=== PATIENT | male | born 1930 ===

== ENCOUNTER 2017-01-22 07:50 | Inpatient (IN) | payer MEDICARE, OTHER ==
[~2017-01-22] VITALS: Ht 185.4 cm; Wt 86.2 kg
[~2017-01-22 07:50] MED LIST: AMITIZA24 MCG PO; ARICEPT10 MG PO; CYMBALTA30 MG PO; IPRATROPIUM BRO30 ML NASBOTH; LIPITOR20 MG PO; PLAVIX75 MG PO; PRAVACHOL20 MG PO; PRINIVIL20 MG PO; RESTORIL15 MG PO; UROXATRAL10 MG PO
[2017-01-22] MEDS ORDERED: LASIX40 MG PO (08:30)
[2017-01-22] MEDS ORDERED: MILK OF MAGNESI30 ML PO (08:39)
[2017-01-22] MEDS ORDERED: RESTORIL15 MG PO ×2 (08:41→11:38)
[2017-01-22] MEDS ORDERED: TRIAMCINOLONE A15 GM TOP (08:43)
[2017-01-22] MEDS ORDERED: [UNRECOGNIZED DRUG - OTHER] TOP (08:53)
[2017-01-22] MEDS ORDERED: SILVADENE20 GM TOP (08:54)
[2017-01-27] MEDS ORDERED: LEVAQUIN500 MG PO (19:21)
== END 2017-01-27 20:50 | disposition home health service (06) | DRG 195 ==
LOC: ER 07:50 → RT 07:50 → IP 12:35 → ER 12:35 → IP 01-27 20:50
PROVIDERS: ADMIT Family Medicine
DX: J18.9 Pneumonia, unspecified organism (principal); I25.10 Atherosclerotic heart disease of native coronary artery without angina pectoris; J44.9 Chronic obstructive pulmonary disease, unspecified; I65.21 Occlusion and stenosis of right carotid artery; F01.50 Vascular dementia, unspecified severity, without behavioral disturbance, psychotic disturbance, mood disturbance, and anxiety; E11.9 Type 2 diabetes mellitus without complications; I71.4 Abdominal aortic aneurysm, without rupture; I35.1 Nonrheumatic aortic (valve) insufficiency; Z88.5 Allergy status to narcotic agent; Z88.8 Allergy status to other drugs, medicaments and biological substances; Z79.02 Long term (current) use of antithrombotics/antiplatelets; Z79.899 Other long term (current) drug therapy; Z95.1 Presence of aortocoronary bypass graft; Z87.891 Personal history of nicotine dependence
CPT/HCPCS: A9150; A9500; J1650; J1956; J2270; J2405; J2543; J2785; Q9963; Q9967

== ENCOUNTER → 2017-02-02 | Outpatient (CLI) | payer MEDICARE, OTHER ==
[~2017-02-02] MED LIST changes: +CEROVITE ADVANC1 TAB PO; +LASIX40 MG PO; +LEVAQUIN500 MG PO; +LOVENOX40 MG/0.4 SUBCUT; +MILK OF MAGNESI30 ML PO; +MIRALAX17 GM PO; +MUCINEX1200 MG PO; +PRAVACHOL40 MG PO; +PROSCAR5 MG PO; +REMERON15 MG PO; +SENOKOT-S TABL1 EACH PO; +SILVADENE20 GM TOP; +TRIAMCINOLONE A15 GM TOP; +TYLENOL325 MG PO; +TYLENOL500 MG PO; +ULTRAM50 MG PO; +[UNRECOGNIZED DRUG - OTHER] TOP
== END | disposition short-term general hospital (02) ==
LOC: CLVASC 14:34
DX: I65.21 Occlusion and stenosis of right carotid artery (principal)

== ENCOUNTER → 2017-02-16 | Outpatient (CLI) | payer MEDICARE, OTHER | END | disposition short-term general hospital (02) | LOC: CLCARD 11:29 | DX: I71.4 Abdominal aortic aneurysm, without rupture (principal); I25.10 Atherosclerotic heart disease of native coronary artery without angina pectoris; J44.9 Chronic obstructive pulmonary disease, unspecified; I35.1 Nonrheumatic aortic (valve) insufficiency ==

== ENCOUNTER → 2017-03-23 | Outpatient (CLI) | payer MEDICARE, OTHER | END | disposition short-term general hospital (02) | LOC: CLCARD 10:12 | DX: I35.1 Nonrheumatic aortic (valve) insufficiency (principal); I25.10 Atherosclerotic heart disease of native coronary artery without angina pectoris; I65.21 Occlusion and stenosis of right carotid artery; I10 Essential (primary) hypertension; R60.0 Localized edema; J44.9 Chronic obstructive pulmonary disease, unspecified; I71.4 Abdominal aortic aneurysm, without rupture; Z95.1 Presence of aortocoronary bypass graft; Z98.890 Other specified postprocedural states ==

== ENCOUNTER → 2017-04-23 | Outpatient (CLI) | payer MEDICARE, OTHER | END | disposition short-term general hospital (02) | LOC: CLVASC 03-30 17:21 | DX: Z48.812 Encounter for surgical aftercare following surgery on the circulatory system (principal); Z86.79 Personal history of other diseases of the circulatory system; Z98.890 Other specified postprocedural states ==

== ENCOUNTER 2017-04-27 01:01 | Emergency (ER) | payer MEDICARE, OTHER ==
[~2017-04-27 01:01] MED LIST changes: -CEROVITE ADVANC1 TAB PO; -LOVENOX40 MG/0.4 SUBCUT; -MIRALAX17 GM PO; -MUCINEX1200 MG PO; -PRAVACHOL40 MG PO; -PROSCAR5 MG PO; -REMERON15 MG PO; -SENOKOT-S TABL1 EACH PO; -TYLENOL325 MG PO; -TYLENOL500 MG PO; -ULTRAM50 MG PO
[2017-04-27] MEDS ORDERED: RESTORIL15 MG PO ×2 (02:03→02:04)
[2017-04-27] MEDS ORDERED: PRAVACHOL40 MG PO (02:04)
[2017-04-27] MEDS ORDERED: MUCINEX1200 MG PO (02:05)
== END 2017-04-27 06:35 | disposition short-term general hospital (02) ==
LOC: ER 01:01
DX: S72.001A Fracture of unspecified part of neck of right femur, initial encounter for closed fracture (principal); S72.141A Displaced intertrochanteric fracture of right femur, initial encounter for closed fracture; R29.6 Repeated falls; I10 Essential (primary) hypertension; I25.10 Atherosclerotic heart disease of native coronary artery without angina pectoris; E11.9 Type 2 diabetes mellitus without complications; Z95.1 Presence of aortocoronary bypass graft; Z90.49 Acquired absence of other specified parts of digestive tract; Z94.7 Corneal transplant status; Z98.1 Arthrodesis status; Z86.2 Personal history of diseases of the blood and blood-forming organs and certain disorders involving the immune mechanism; Z79.02 Long term (current) use of antithrombotics/antiplatelets; Z79.899 Other long term (current) drug therapy; Z88.5 Allergy status to narcotic agent; Z88.8 Allergy status to other drugs, medicaments and biological substances; W07.XXXA Fall from chair, initial encounter
CPT/HCPCS: 73552-RT; J2270; J2405

== ENCOUNTER 2017-05-13 18:28 | Inpatient (IN) | payer MEDICARE, OTHER ==
[~2017-05-13] VITALS: Ht 190.5 cm; Wt 81.6 kg
[~2017-05-13 18:28] MED LIST changes: +MUCINEX1200 MG PO; +PRAVACHOL40 MG PO
[2017-05-13] MEDS ORDERED: REMERON15 MG PO (21:00)
[2017-05-13] MEDS ORDERED: CEROVITE ADVANC1 TAB PO (21:01)
[2017-05-13] MEDS ORDERED: MIRALAX17 GM PO (21:01)
[2017-05-13] MEDS ORDERED: SENOKOT-S TABL1 EACH PO (21:02)
[2017-05-13] MEDS ORDERED: ULTRAM50 MG PO ×2 (21:05→21:07)
[2017-05-13] MEDS ORDERED: PROSCAR5 MG PO (21:09)
[2017-05-13] MEDS ORDERED: TYLENOL325 MG PO (21:10)
[2017-05-16] MEDS ORDERED: LOVENOX40 MG/0.4 SUBCUT (08:44)
[2017-05-16] MEDS ORDERED: TYLENOL500 MG PO (08:45)
== END 2017-05-16 10:40 | DRG 872 ==
LOC: ER 18:28 → IP 21:35
PROVIDERS: ADMIT Family Medicine
DX: A41.9 Sepsis, unspecified organism (principal); N39.0 Urinary tract infection, site not specified; R31.9 Hematuria, unspecified; Z96.641 Presence of right artificial hip joint; Z86.73 Personal history of transient ischemic attack (TIA), and cerebral infarction without residual deficits; B96.89 Other specified bacterial agents as the cause of diseases classified elsewhere; Z95.1 Presence of aortocoronary bypass graft; G31.84 Mild cognitive impairment of uncertain or unknown etiology; I95.9 Hypotension, unspecified; E11.9 Type 2 diabetes mellitus without complications; D47.3 Essential (hemorrhagic) thrombocythemia
CPT/HCPCS: A9150; J1650; J1815; J2060; J2543

== ENCOUNTER → 2017-05-18 | Outpatient (CLI) | payer OTHER, MEDICARE ==
[~2017-05-18] MED LIST changes: +CEROVITE ADVANC1 TAB PO; +LOVENOX40 MG/0.4 SUBCUT; +MIRALAX17 GM PO; +PROSCAR5 MG PO; +REMERON15 MG PO; +SENOKOT-S TABL1 EACH PO; +TYLENOL325 MG PO; +TYLENOL500 MG PO; +ULTRAM50 MG PO
== END | disposition short-term general hospital (02) ==
LOC: CLCARD 03:35
DX: I25.10 Atherosclerotic heart disease of native coronary artery without angina pectoris (principal); I65.21 Occlusion and stenosis of right carotid artery; J44.9 Chronic obstructive pulmonary disease, unspecified; E11.9 Type 2 diabetes mellitus without complications; I71.4 Abdominal aortic aneurysm, without rupture; I10 Essential (primary) hypertension; N39.0 Urinary tract infection, site not specified; I35.1 Nonrheumatic aortic (valve) insufficiency